=== PATIENT | male | born 1990 | race African-American/Black ===

== ENCOUNTER 2017-04-18 13:40 | Emergency (ER) | payer OTHER ==
[2017-04-18 13:51] VITALS: BP 107/59
--- NOTE | 2017-04-18 13:54 | ED Physician Documentation ---
History of Present Illness - Stated complaint Stated Complaint: SYNCOPE - Chief complaint Chief Complaint: General - History obtained from History obtained from: Patient - History of Present Illness Timing: Other (27-year-old gentleman with history of PVCs that has been worked up with recommendation to decrease caffeine. Actually had quite a bit of caffeine today and did not eat or drink much otherwise and he was over in the surgical suite where his was having a surgical procedure and he had a near syncopal episode. There is no associated chest pain or trouble breathing. He feels fine now.) Review of Systems Ten Systems: 10 systems reviewed and negative Constitutional: denies: Fever, Chills Throat: denies: Dental pain / toothache, Sore throat Cardiac: denies: Chest pain / pressure, Palpitations Respiratory: denies: Dyspnea, Cough PD PAST MEDICAL HISTORY - Past Medical History Past Medical History: No - Past Surgical History Past Surgical History: No - Present Medications Home Medications: Ambulatory Orders Medication Instructions Recorded Confirmed No Known Home Medications [No 04/18/17 04/18/17 Known Home Medications] - Allergies Allergies/Adverse Reactions: Allergies Allergy/AdvReac Type Severity Reaction Status Date / Time No Known Drug Allergies Allergy Verified 04/18/17 13:45 - Social History Does the pt smoke?: No Smoking Status: Never smoker Does the pt drink ETOH?: No Does the pt have substance abuse?: No PD ED PE NORMAL - Vitals Vital signs reviewed: Yes - General General: Alert and oriented X 3, No acute distress - HEENT HEENT: PERRL, EOMI - Neck Neck: Supple, no meningeal sign, No bony TTP, No bruit - Cardiac Cardiac: RRR (With frequent PVCs), No murmur - Respiratory Respiratory: No respiratory distress, Clear bilaterally - Abdomen Abdomen: Non tender - Extremities Extremities: No edema, No calf tenderness / cord - Neuro Neuro: Alert and oriented X 3, Normal speech - Psych Psych: Normal mood, Normal affect Results - Vitals Vitals: Vital Signs - 24 hr 04/18/17 04/18/17 13:42 13:49 Temperature 36.4 C L Heart Rate 68 73 Respiratory 16 20 Rate Blood Pressure 114/52 L 107/59 L O2 Saturation 100 100 Oxygen O2 Source Room air - EKG (time done) 1344 Rate: Rate (enter#) (71) Rhythm: NSR (With frequent PVCs) [place]: Normal Intervals: Normal [place] QRS: Normal Ischemia: Normal ST segments Computer interpretation: Agree with computer PD MEDICAL DECISION MAKING - ED course ED course: He is having frequent PVCs which he says is a chronic issue. I recommended workup including labs and IV fluids which he refused. He says he feels back to normal and just wants to leave. Departure - Departure Disposition: 01 Home, Self Care Clinical Impression: Near syncope Condition: Good Record reviewed to determine appropriate education?: Yes Instructions: ED Near Syncope Vasovagal Comments: Call your doctor to arrange a follow-up appointment, make the next available appointment. In the interim, return anytime if worse or if new symptoms develop.
== END 2017-04-18 14:06 | disposition home or self-care (01) ==
LOC: ED 13:40
DX: R55 Syncope and collapse (principal); I49.3 Ventricular premature depolarization
CPT/HCPCS: 93005; 99283